=== PATIENT | male | born 1975 | race Caucasian/White ===

== ENCOUNTER 2020-12-26 15:51 | Emergency (ER) | payer MEDICAID ==
[~2020-12-26] VITALS: Ht 180.3 cm; Wt 106.8 kg
[2020-12-26 16:03] VITALS: BP 132/88
== END 2020-12-26 16:22 | disposition home or self-care (01) ==
LOC: ER 15:52
DX: M79.605 Pain in left leg (principal); R11.0 Nausea; R63.0 Anorexia; G89.29 Other chronic pain; F17.200 Nicotine dependence, unspecified, uncomplicated; Z13.9 Encounter for screening, unspecified; Z59.0 Homelessness; Z72.89 Other problems related to lifestyle; Z68.32 Body mass index [BMI] 32.0-32.9, adult
CPT/HCPCS: 99283